=== PATIENT | female | born 1995 | race American Indian/Alaskan Native ===

== ENCOUNTER 2017-11-03 01:29 | Emergency (ER) | payer OTHER ==
[2017-11-03] MEDS ORDERED: ASPIRIN PO ONE (01:55)
[2017-11-03 02:20] LABS: Basophils % (Auto) 0.3 % (0.0-1.8); Eosinophils # (Auto) 0.2 K/mm3 (0.0-0.4); Hematocrit 33.7 % (30.3-42.9); Hemoglobin 10.7 gm/dl (10.1-14.3); Lymphocytes # (Auto) 2.3 K/mm3 (1.2-5.4); Lymphocytes % (Auto) 30.1 % (13.4-35.0); Mean Corpuscular HGB Conc 32 % (30-34); Mean Corpuscular Hemoglobin 21 pg (28-32); Mean Corpuscular Volume 67 fl (79-97); Monocytes # (Auto) 0.9 K/mm3 (0.0-0.8); Monocytes % (Auto) 11.4 % (0.0-7.3); Platelet Count 292 K/mm3 (140-440); Red Blood Count 5.03 M/mm3 (3.65-5.03); Red Cell Distribution Width 19.9 % (13.2-15.2)
--- NOTE | 2017-11-03 02:29 | XRay Report ---
FINAL REPORT PROCEDURE: XR CHEST ROUTINE 2V TECHNIQUE: PA and lateral chest radiographs were obtained. CPT 61719 HISTORY: SOB COMPARISON: No prior studies are available for comparison. FINDINGS: Heart: Normal. Mediastinum/Vessels: Normal. Lungs/Pleural space: Normal. Bony thorax: No acute osseous abnormality. Other: IMPRESSION: Normal examination.
[2017-11-03 02:35] LABS: BUN/Creatinine Ratio 16; Blood Urea Nitrogen 13 mg/dL (7-17); Calcium 9.5 mg/dL (8.4-10.2); Hemolysis Index 4
[2017-11-03 03:12] LABS: Bilirubin,Urine NEG (Negative); Blood,Urine NEG (Negative); Color,Urine Straw (Yellow); Mucus,Urine FEW /HPF; Protein,Urine <15 mg/dL mg/dL (Negative); Urobilinogen,Urine < 2.0 mg/dL (<2.0)
[2017-11-03] MEDS ORDERED: NACL 0.9% 1000 ML 1,000 ML IV ONE (07:58)
[2017-11-03] MEDS ORDERED: NORCO 5/325 PO ONE (08:38)
[2017-11-03 09:16] VITALS: BP 118/72
[2017-11-03 09:24] LABS: HCG Qualitative,Urine Negative (Negative)
--- NOTE | 2017-11-03 09:25 | Emergency Department Report ---
HPI - General Chief Complaint: Chest Pain Time Seen by Provider: 11/03/17 07:56 - HPI HPI: The patient is a 22-year-old female presents for evaluation of chest pain. The patient reports chest pain for the past 4 days, sharp in quality, radiating to the back, 9/10 in severity currently, and worse with coughing. She also reports a cough for the same duration, associated with mild intermittent dyspnea , intermittent hemoptysis, and episodic dizziness elicited with position changes. The patient denies fever, neck pain, parasthesias, palpitations, syncope, unilateral leg swelling, calf muscle pain. Patient also denies cocaine or other stimulant use, history of DVT or PE, history of diabetes, high cholesterol, sudden cardiac in middle-aged family members, recent immobilization, or history of cancer. ED Past Medical Hx - Past Medical History Previous Medical History?: Yes Hx Asthma: Yes - Surgical History Past Surgical History?: Yes Additional Surgical History: ear X 3 - Social History Smoking Status: Former Smoker Substance Use Type: Alcohol ED Review of Systems ROS: Stated complaint: CHEST PAIN,DIZZY,SOB Other details as noted in HPI Constitutional: denies: fever ENT: denies: throat or neck pain Respiratory: reports: cough, shortness of breath Cardiovascular: reports: chest pain Endocrine: denies unexplained weight loss or gain Gastrointestinal: denies: abdominal pain, nausea Genitourinary: denies: dysuria Musculoskeletal: denies: leg swelling Skin: denies: rash Neurological: denies: headache Hematological/Lymphatic: denies: easy bleeding or easy bruising Psych: denies sadness or hopelessness Physical Exam - Physical Exam Vital Signs: Vital Signs 11/03/17 11/03/17 11/03/17 01:37 06:34 06:41 Temperature 98.3 F 97.8 F Pulse Rate 90 77 Respiratory 18 16 Rate Blood Pressure 135/84 Blood Pressure 128/85 [Left] O2 Sat by Pulse 100 100 100 Oximetry 11/03/17 11/03/17 11/03/17 06:46 07:00 07:15 Temperature Pulse Rate 78 72 84 Respiratory 13 20 17 Rate Blood Pressure 128/85 136/80 136/80 Blood Pressure [Left] O2 Sat by Pulse 97 100 100 Oximetry 11/03/17 11/03/17 11/03/17 07:40 07:46 08:00 Temperature Pulse Rate 76 85 Respiratory 17 14 Rate Blood Pressure 136/80 118/74 112/65 Blood Pressure [Left] O2 Sat by Pulse 100 100 100 Oximetry 11/03/17 11/03/17 11/03/17 08:16 08:30 08:46 Temperature Pulse Rate 90 77 73 Respiratory 17 22 13 Rate Blood Pressure 118/74 118/64 112/65 Blood Pressure [Left] O2 Sat by Pulse 100 100 100 Oximetry 11/03/17 09:00 Temperature Pulse Rate 70 Respiratory 19 Rate Blood Pressure 118/72 Blood Pressure [Left] O2 Sat by Pulse 100 Oximetry Physical Exam: General: well-nourished, well-developed, no acute distress Head: Normocephalic, atraumatic Eyes: normal sclera ENT: Mucous membranes are pink and moist Neck: trachea midline, neck supple, No neck stiffness, no cervical adenopathy Respiratory: Breath sounds equal bilaterally, no wheezing, rales, or rhonchi Cardio: S1 and S2 present, no murmurs, rubs, gallops, capillary refill is brisk Abdomen: Normoactive bowel sounds, soft abdomen, no rigidity, no guarding or rebound tenderness Chest WALL/Back: No tenderness to palpation of the chest wall, no CVA tenderness with percussion Musc: No pitting edema Skin: No rash Neuro: no facial drooping, normal speech Psych: Normal affect ED Course Vital Signs 11/03/17 11/03/17 11/03/17 01:37 06:34 06:41 Temperature 98.3 F 97.8 F Pulse Rate 90 77 Respiratory 18 16 Rate Blood Pressure 135/84 Blood Pressure 128/85 [Left] O2 Sat by Pulse 100 100 100 Oximetry 11/03/17 11/03/17 11/03/17 06:46 07:00 07:15 Temperature Pulse Rate 78 72 84 Respiratory 13 20 17 Rate Blood Pressure 128/85 136/80 136/80 Blood Pressure [Left] O2 Sat by Pulse 97 100 100 Oximetry 11/03/17 11/03/17 11/03/17 07:40 07:46 08:00 Temperature Pulse Rate 76 85 Respiratory 17 14 Rate Blood Pressure 136/80 118/74 112/65 Blood Pressure [Left] O2 Sat by Pulse 100 100 100 Oximetry 11/03/17 11/03/17 11/03/17 08:16 08:30 08:46 Temperature Pulse Rate 90 77 73 Respiratory 17 22 13 Rate Blood Pressure 118/74 118/64 112/65 Blood Pressure [Left] O2 Sat by Pulse 100 100 100 Oximetry 11/03/17 09:00 Temperature Pulse Rate 70 Respiratory 19 Rate Blood Pressure 118/72 Blood Pressure [Left] O2 Sat by Pulse 100 Oximetry ED Medical Decision Making - Lab Data Result diagrams: 11/03/17 02:07 11/03/17 02:07 - Medical Decision Making The patient was seen and examined by myself. The patient is placed on a cathode maker and continuous pulse ox. On initial evaluation, the patient was found to be in no distress. EKG was negative for findings suggestive of acute cardiac infarct. Labs and imaging are obtained. The patient given pain medicine. Chest x-ray is negative for pneumothorax, focal consolidation, pulmonary vascular congestion, pleural effusion, or other obvious acute cardiopulmonary disease process. Lab results were non-concerning including levels of troponin, WBC, hemoglobin, hematocrit, electrolytes, renal function. As the patient experience sharp chest pain radiating to the back, associated with hemoptysis, a CT angiogram of the chest was ordered to rule out pulmonary embolism and aortic dissection. The patient refused the CAT scan, they stated that she would like to sign out. The patient is informed of risks of refusal of further care/stabilization and signing out AGAINST MEDICAL ADVICE, including potential risk of increased morbidity and/or , versus benefits of further treatment and stablization. The patient is informed of treatment options and outside facility options for further treatment and definitive stablization. The patient is able to verbalize their treatment options and benefits of treatments, versus risks of refusal of further care. The patient is alert and oriented 3, and is competent to make medical decisions and signed out AGAINST MEDICAL ADVICE. Critical care attestation.: If time is entered above; I have spent that time in minutes in the direct care of this critically ill patient, excluding procedure time. ED Disposition Clinical Impression: Acute chest pain, Orthostatic dizziness Dyspnea Qualifiers: Dyspnea type: unspecified Qualified Code(s): R06.00 - Dyspnea, unspecified Disposition: LEFT AGAINST MED ADVICE Is pt being admited?: No Does the pt Need Aspirin: No Condition: Undetermined Instructions: Chest Pain (ED) Referrals: PRIMARY CARE, [Primary Care Provider] - 3-5 Days Time of Disposition: 09:25
== END 2017-11-03 09:34 | disposition left against medical advice (07) ==
LOC: ED 01:29
DX: R07.89 Other chest pain (principal); R42 Dizziness and giddiness; R04.2 Hemoptysis; R06.00 Dyspnea, unspecified; J45.909 Unspecified asthma, uncomplicated; Z87.891 Personal history of nicotine dependence; Z88.0 Allergy status to penicillin
CPT/HCPCS: 36415; 71046; 80048; 81001; 81025; 84484; 85025; 93005; 93010